=== PATIENT | female | born 1950 | race Caucasian/White ===

== ENCOUNTER → 2017-11-08 | Outpatient (CLI) | payer OTHER | LOC: FIMAGING 10:21 | PROVIDERS: ATTEND Internal Medicine | DX: Z13.820 Encounter for screening for osteoporosis (principal); M85.89 Other specified disorders of bone density and structure, multiple sites ==

== ENCOUNTER 2018-05-01 18:11 | Emergency (ER) | payer OTHER ==
--- NOTE | 2018-05-01 18:22 | EDPHY ---
H & P Stated Complaint: FELL OFF CHAIR IN GRAPE ARBOR IMPACTED L KNEE Time Seen by Provider: 05/01/18 18:21 HPI/ROS: CHIEF COMPLAINT: left knee injury HISTORY OF PRESENT ILLNESS: The patient is a 68 y/o female arriving with her complaining of left knee pain secondary to a fall this afternoon at 14: 00, 4.5 hours ago. She was standing on a chair picking [place] beetles off a grape arbor and reached out too far causing her to fall over the chair and directly onto her left knee. She had immediate sharp pain in the joint with mild transient tingling her her right toes. She denies striking her head, losing consciousness, weakness, persisting paresthesias, spinal pain, or any other injuries. She was able to hop and limp into the house where she iced her knee and used arnica orally and topically for pain and swelling. The swelling seems to have improved. She has no history of prior injuries or surgeries in this leg. No anticoagulants. REVIEW OF SYSTEMS: A ten point review of systems was performed and is negative with the exception of the items mentioned in the HPI. Past medical history: Denies Past surgical history: Ovarian cyst removal Family history: Noncontributory Social history: Nonsmoker. No recent alcohol. at bedside. General Appearance: Alert. Vital signs reviewed. Neck: No lymphadenopathy, supple. Respiratory: Lungs are clear to auscultation; no wheezes, rales, or rhonchi. Cardiovascular: Regular rate and rhythm; no murmur, rub, or gallop. Gastrointestinal: Abdomen is soft and nontender, no masses or organomegaly. Skin: Warm and dry, no rashes on exposed skin, normal color. Back: Nontender to palpation over the thoracolumbar spine. Extremities: Tenderness to right medial knee. Pain with attempt to flex beyond 45 degrees. No appreciable swelling or effusion. Resists provocative testing due to pain. No laceration or abrasion. Pulses: 2+ bilaterally in lower extremities. Neurological: Alert and oriented. Moving all four extremities easily and equally except for right leg at knee. Psychiatric: Normal affect. - Personal History Current Tetanus Diphtheria and Acellular Pertussis (TDAP): Unsure - Medical/Surgical History Hx Asthma: No Hx Chronic Respiratory Disease: No Hx Diabetes: No Hx Cardiac Disease: No Hx Renal Disease: No Hx Cirrhosis: No Hx Alcoholism: No Hx HIV/AIDS: No Hx Splenectomy or Spleen Trauma: No Other PMH: DENIES - Social History Smoking Status: Never smoked Constitutional: Initial Vital Signs Temperature (C) 36.7 C 05/01/18 18:16 Heart Rate 85 05/01/18 18:16 Respiratory Rate 18 05/01/18 18:16 Blood Pressure 113/82 H 05/01/18 18:16 O2 Sat (%) 93 05/01/18 18:16 O2 Delivery Mode Room Air Allergies/Adverse Reactions: No Known Allergies Allergy (Unverified 05/01/18 18:15) Home Medications: Medication Instructions Recorded NK [No Known Home Meds] 05/01/18 Medical Decision Making - Diagnostics Imaging: I viewed and interpreted images myself ED Course/Re-evaluation: This is a well-appearing and healthy 68 y/o female who presents with an isolated injury to her left knee after a mechanical fall off a chair. She has tenderness along the medial aspect of her knee. She is neurovascularly intact. Suspect ligamentous injury rather than bony. Plan for left knee x-ray. Patient declined pain medication. X-ray is negative for fracture or dislocation.. Reassessed patient and discussed findings. She will be discharged in a knee immobilizer with standard knee injury care and follow up instructions. Referral to orthopedist provided and return precautions discussed. Differential Diagnosis: DDX includes but is not limited to fracture, dislocation, infection, laceration , abrasion, ligamentous injury. Departure - Departure Disposition: Home, Routine, Self-Care Clinical Impression: Left knee injury Qualifiers: Encounter type: initial encounter Qualified Code(s): S89.92XA - Unspecified injury of left lower leg, initial encounter Condition: Good Instructions: Knee Pain (ED), Knee Immobilizer (ED) Additional Instructions: 1. Take 600mg ibuprofen every 6-8 hours for pain and inflammation over the next few days. 2. Keep knee in immobilizer brace as needed for support. Okay to remove for showering. 3. Elevate leg and apply ice to sore areas intermittently over the next 24-48 hours. 4. Limit activity over the next few days and advance slowly. Do not over-exert yourself if symptoms are not improving. 5. Follow up with orthopedist in the next week if symptoms have not improved. I recommend calling earlier to schedule this appointment. 6. Return to the ED for severe pain, weakness or numbness in your leg, or other worsening of condition. Referrals: Reno Cardona MD [Primary Care Provider] - As per Instructions Robert Ovalles MD [Medical Doctor] - As per Instructions Jabier Osullivan MD [Medical Doctor] - As per Instructions Report Scribed for: Haydee Mazariegos Report Scribed by: Richa Leung Date of Report: 05/01/18 Time of Report: 18:34 Physician Review and Approval Statement: 05/01/18 18:22 Portions of this note were transcribed by the associate medical director. I, Dr. Haydee Mazariegos, personally performed the history, physical exam, and medical decision- making; and confirmed the accuracy of the information in the transcribed note.
[2018-05-01 19:42] VITALS: BP 139/83
== END 2018-05-01 19:40 | disposition home or self-care (01) ==
DX: S89.92XA Unspecified injury of left lower leg, initial encounter (principal); W07.XXXA Fall from chair, initial encounter
CPT/HCPCS: 73564; 99283; L1830

== ENCOUNTER → 2018-11-22 | Outpatient (CLI) | payer OTHER | LOC: FIMAGING 16:39 | PROVIDERS: ATTEND Internal Medicine | DX: R05 Cough (principal); M51.34 Other intervertebral disc degeneration, thoracic region ==